=== PATIENT | female | born 1945 | race Caucasian/White ===

== ENCOUNTER → 2016-10-13 | Outpatient (CLI) | payer MEDICARE, OTHER ==
[~2016-10-13] MED LIST: AMARYL 2MG TABLE2 MG PO; AMLODIPINE BESYL5 MG PO; ASPIRIN81 MG PO; BETAPACE80 MG PO; DIAMOX 250 MG250 MG PO; ELIQUIS5 MG PO; HUMIBID LA TAB600 MG PO; HYDROXYZINE PAM25 MG PO; KLOR-CON M2020 MEQ PO; LABETALOL HCL300 MG PO; LASIX20 MG PO; LEVOFLOXACIN250 MG PO; LISINOPRIL40 MG PO; LOVAZA1 GM PO; METOPROLOL TART50 MG PO; VALIUM 2 MG TAB2 MG PO; VITAMIN D31000 UNIT PO; ZETIA10 MG PO
== END ==
LOC: RAD 13:50
DX: K52.9 Noninfective gastroenteritis and colitis, unspecified (principal); R93.3 Abnormal findings on diagnostic imaging of other parts of digestive tract
CPT/HCPCS: 74000

== ENCOUNTER → 2016-11-13 | Outpatient (CLI) | payer MEDICARE, OTHER ==
[2016-11-13 14:58] LABS: HEMOGLOBIN 15.9 gm/dl (12.3-15.3); RED BLOOD COUNT 5.09 M/UL (4.00-5.10); WHITE BLOOD COUNT 6.9 K/UL (4.5-11.0)
[2016-11-13 15:17] LABS: BUN/CREATININE RATIO 26 (0-10)
== END ==
LOC: CT 14:22
PROVIDERS: Internal Medicine Cardiovascular Disease
DX: I49.5 Sick sinus syndrome (principal); R53.1 Weakness; R53.83 Other fatigue; R00.2 Palpitations; R78.5 Finding of other psychotropic drug in blood; I10 Essential (primary) hypertension; R06.02 Shortness of breath; I34.0 Nonrheumatic mitral (valve) insufficiency; Z86.79 Personal history of other diseases of the circulatory system
CPT/HCPCS: 36415; 80053; 83735; 85025

== ENCOUNTER → 2016-11-19 | Day surgery (SDC) | payer MEDICARE, OTHER ==
[~2016-11-19] VITALS: Ht 162.6 cm; Wt 132.4 kg
== END | disposition home or self-care (01) ==
LOC: OR 06:56
PROVIDERS: Internal Medicine Gastroenterology
PROC: 0DBL8ZZ Excision of Transverse Colon, Via Natural or Artificial Opening Endoscopic (ICD-10-PCS; 2016-11-19)
PROC: 0DBE8ZX Excision of Large Intestine, Via Natural or Artificial Opening Endoscopic, Diagnostic (ICD-10-PCS; 2016-11-19)
PROC: 0DBM8ZZ Excision of Descending Colon, Via Natural or Artificial Opening Endoscopic (ICD-10-PCS; principal; 2016-11-19 09:10)
DX: D12.4 Benign neoplasm of descending colon (principal); K63.5 Polyp of colon; K64.0 First degree hemorrhoids; I10 Essential (primary) hypertension; E11.9 Type 2 diabetes mellitus without complications; E66.01 Morbid (severe) obesity due to excess calories; G47.30 Sleep apnea, unspecified; Z68.43 Body mass index [BMI] 50.0-59.9, adult; Z99.89 Dependence on other enabling machines and devices; Z87.01 Personal history of pneumonia (recurrent); Z88.8 Allergy status to other drugs, medicaments and biological substances; Z79.01 Long term (current) use of anticoagulants; Z79.82 Long term (current) use of aspirin; Z79.899 Other long term (current) drug therapy; Z95.0 Presence of cardiac pacemaker; Z90.49 Acquired absence of other specified parts of digestive tract
CPT/HCPCS: 82962; J7030

== ENCOUNTER → 2021-05-21 | Outpatient (CLI) | payer MEDICARE, OTHER ==
[~2021-05-21] MED LIST changes: +ACETAMINOPHEN-1 EAC1 PO; +BETAPACE120 MG PO; +COLESTID1 GM PO; +IMODIUM MULTI-1 EACH PO; +JARDIANCE10 MG PO; +LEVAQUIN500 MG PO; +METOLAZONE2.5 MG PO; +PRINIVIL20 MG PO
== END ==
LOC: EXRD 08:30 → HEART 5 06-12 13:30
DX: K76.0 Fatty (change of) liver, not elsewhere classified (principal); Z90.49 Acquired absence of other specified parts of digestive tract
CPT/HCPCS: 76700

== ENCOUNTER → 2021-06-12 | Outpatient (CLI) | payer MEDICARE, OTHER ==
[~2021-06-12] MED LIST changes: +B12 ACTIVE1000 MCG PO; +GLUCOPHAGE XR500 M1 PO; +LOPRESSOR 25 MG25 MG PO; +TOVIAZ8 MG PO; +TYLENOL EXTRA500 MG PO; +TYLENOL PM EX-1 EACH PO; -VITAMIN D31000 UNIT PO; +VITAMIN D350 MC3 PO
== END ==
LOC: HEART 5 13:35
DX: R06.02 Shortness of breath (principal); I50.9 Heart failure, unspecified
CPT/HCPCS: 93306

== ENCOUNTER 2021-06-15 18:36 | Inpatient (IN) | payer MEDICARE, OTHER ==
[~2021-06-15] VITALS: Ht 162.6 cm; Wt 122.5 kg
[~2021-06-15 18:36] MED LIST changes: -B12 ACTIVE1000 MCG PO; -GLUCOPHAGE XR500 M1 PO; -LOPRESSOR 25 MG25 MG PO; -TOVIAZ8 MG PO; -TYLENOL EXTRA500 MG PO; -TYLENOL PM EX-1 EACH PO
[2021-06-15 20:03] LABS: HEMOGLOBIN 17.7 gm/dl (12.3-15.3); RED BLOOD COUNT 5.4 M/UL (4.00-5.10); WHITE BLOOD COUNT 7.8 K/UL (4.5-11.0)
[2021-06-15 20:26] LABS: BUN/CREATININE RATIO 27 (0-10)
[2021-06-16] MEDS ORDERED: GLUCOPHAGE XR500 M1 PO (02:01)
[2021-06-16] MEDS ORDERED: LOPRESSOR 25 MG25 MG PO (02:02)
[2021-06-16] MEDS ORDERED: B12 ACTIVE1000 MCG PO (02:05)
[2021-06-16] MEDS ORDERED: TYLENOL EXTRA500 MG PO (02:06)
[2021-06-16] MEDS ORDERED: TYLENOL PM EX-1 EACH PO (02:06)
[2021-06-16] MEDS ORDERED: TOVIAZ8 MG PO (02:09)
[2021-06-16 04:10] LABS: HEMOGLOBIN 17.2 gm/dl (12.3-15.3); RED BLOOD COUNT 5.32 M/UL (4.00-5.10)
[2021-06-16 04:22] LABS: WHITE BLOOD COUNT 5.2 K/UL (4.5-11.0)
[2021-06-18 02:50] LABS: HEMOGLOBIN 17.2 gm/dl (12.3-15.3); RED BLOOD COUNT 5.25 M/UL (4.00-5.10)
[2021-06-18 03:01] LABS: WHITE BLOOD COUNT 10.2 K/UL (4.5-11.0)
--- NOTE | 2021-06-18 11:26 | NUR ---
PT RESTING OXYGEN SATURATION ON ROOM AIR IS 90 PERCENT
--- NOTE | 2021-06-18 12:43 | NUR ---
PTS OXYGEN ON ROOM AIR WITH AMBULATION IS 88%.
[2021-06-20 06:51] LABS: HEMOGLOBIN 17.7 gm/dl (12.3-15.3); RED BLOOD COUNT 5.48 M/UL (4.00-5.10); WHITE BLOOD COUNT 8.4 K/UL (4.5-11.0)
[2021-06-20 07:20] LABS: BUN/CREATININE RATIO 37 (0-10)
[2021-06-20] MEDS ORDERED: MELATONIN3 MG PO (10:10)
[2021-06-20] MEDS ORDERED: IPRAT-ALBUT 0.5-3 ML NEB (10:10)
== END 2021-06-20 13:12 | DRG 177 ==
LOC: ER1 18:36 → M/S 22:52 → CDU 22:52 → M/S 06-16 01:33
PROVIDERS: Internal Medicine Infectious Disease; Student in an Organized Health Care Education/Training Program; ADMIT Internal Medicine
PROC: XW033E5 Introduction of Remdesivir Anti-infective into Peripheral Vein, Percutaneous Approach, New Technology Group 5 (ICD-10-PCS; principal; 2021-06-15)
PROC: 3E0333Z Introduction of Anti-inflammatory into Peripheral Vein, Percutaneous Approach (ICD-10-PCS; 2021-06-15)
PROC: 5A09357 Assistance with Respiratory Ventilation, Less than 24 Consecutive Hours, Continuous Positive Airway Pressure (ICD-10-PCS; 2021-06-16)
PROC: 8E0ZXY6 Isolation (ICD-10-PCS; 2021-06-20)
DX: U07.1 COVID-19 (principal); J96.21 Acute and chronic respiratory failure with hypoxia; E66.2 Morbid (severe) obesity with alveolar hypoventilation; Z68.42 Body mass index [BMI] 45.0-49.9, adult; I44.2 Atrioventricular block, complete; J40 Bronchitis, not specified as acute or chronic; E87.6 Hypokalemia; I49.5 Sick sinus syndrome; G47.33 Obstructive sleep apnea (adult) (pediatric); I27.20 Pulmonary hypertension, unspecified; I11.0 Hypertensive heart disease with heart failure; I50.9 Heart failure, unspecified; I48.0 Paroxysmal atrial fibrillation; Z79.01 Long term (current) use of anticoagulants; E11.65 Type 2 diabetes mellitus with hyperglycemia; Z95.0 Presence of cardiac pacemaker; R53.81 Other malaise; Z99.81 Dependence on supplemental oxygen; Z79.82 Long term (current) use of aspirin; Z79.899 Other long term (current) drug therapy; Z79.4 Long term (current) use of insulin; Z90.49 Acquired absence of other specified parts of digestive tract; Z88.8 Allergy status to other drugs, medicaments and biological substances; Z87.891 Personal history of nicotine dependence
CPT/HCPCS: 0240U; 36415; 36600; 71045; 71250; 80053; 82550; 82553; 82728; 82803; 82962; 83874; 83880; 84484; 85025; 85379; 86140; 93005; 93306; 94640; 94760; 96374; 96375; 97110-GP-CQ; 97116-GP-CQ; 97161; 97166; 97530-GP-CQ; 99285; J0456; J0696; J1100; J1940; J7030

== ENCOUNTER → 2021-12-03 | Day surgery (SDC) | payer MEDICARE, OTHER ==
[~2021-12-03] MED LIST changes: +ACETAMINOPHEN80 M1 PO; +B12 ACTIVE1000 MCG PO; +DESYREL 50 MG T50 MG PO; +GLUCOPHAGE XR500 M1 PO; +IMODIUM CAP 2 MG2 MG PO; +IPRAT-ALBUT 0.5-3 ML NEB; +K-TAB ER20 MEQ PO; +LOPRESSOR 25 MG25 MG PO; +MELATONIN3 MG PO; +TOVIAZ8 MG PO; +TRULICITY1.5 MG/0.5 SQ; +TYLENOL EXTRA500 MG PO; +TYLENOL PM EX-1 EACH PO; +VITAMIN D325 MCG PO
== END | disposition home or self-care (01) ==
LOC: OR 07:11
DX: Z12.11 Encounter for screening for malignant neoplasm of colon (principal); K64.0 First degree hemorrhoids; K64.1 Second degree hemorrhoids; I48.91 Unspecified atrial fibrillation; I10 Essential (primary) hypertension; E11.9 Type 2 diabetes mellitus without complications; E66.01 Morbid (severe) obesity due to excess calories; Z68.42 Body mass index [BMI] 45.0-49.9, adult; Z86.010 Personal history of colon polyps; Z20.822 Contact with and (suspected) exposure to COVID-19; Z79.01 Long term (current) use of anticoagulants; Z88.8 Allergy status to other drugs, medicaments and biological substances; Z79.82 Long term (current) use of aspirin
CPT/HCPCS: 82962; J7040